=== PATIENT | female | born 1945 | race Caucasian/White ===

== ENCOUNTER 2017-10-08 21:31 | Inpatient (IN) | payer MEDICARE ==
[~2017-10-08] VITALS: Ht 167.6 cm; Wt 51.4 kg
[~2017-10-08 21:31] MED LIST: PROT40TA PO
[2017-10-08 21:39] VITALS: BP 141/64; PULSE 101; RESP 16; TEMP 97.1; O2SAT 92
[2017-10-08] MEDS ORDERED: SODIUM CHLOR 0.9% 1000 ML INJ 1,000 ML IV SCH (21:59)
[2017-10-08] MEDS ORDERED: SODIUM CHLORIDE 0.9% FLUSH 10 ML FLUSH IV FLUSH PRN (22:00)
[2017-10-08] MEDS ORDERED: ONDANSETRON HCL 4 MG/2 ML VIAL IVP ONE (22:00)
[2017-10-08 22:12] VITALS: RESP 18; O2SAT 94
[2017-10-08 22:17] LABS: AUTOMATED NEUTROPHIL # 7.9 TH/MM3 (1.8-7.7); BASOPHIL % 0.2 % (0.0-2.0); EOSINOPHIL # 0.1 TH/MM3 (0-0.4); EOSINOPHIL % 0.9 % (0.0-4.0); HEMATOCRIT 43.8 % (35.0-46.0); HEMO FLAGS DIFF FINAL; LYMPH % 12.1 % (9.0-44.0); LYMPHOCYTE # 1.2 TH/MM3 (1.0-4.8); MEAN CELL VOLUME 90.2 FL (80.0-100.0); MEAN CORPUSCULAR HEMOGLOBIN 29.8 PG (27.0-34.0); MONO % 5.1 % (0.0-8.0); NEUT % 81.7 % (16.0-70.0); PLATELET COUNT 303 TH/MM3 (150-450); RED BLOOD COUNT 4.86 MIL/MM3 (4.00-5.30); RED CELL DISTRIBUTION WIDTH 12.7 % (11.6-17.2); WHITE BLOOD COUNT 9.7 TH/MM3 (4.0-11.0)
[2017-10-08 22:24] LABS: CHLORIDE 101 MEQ/L (98-107); POTASSIUM 3.5 MEQ/L (3.5-5.1); SODIUM (NA) 137 MEQ/L (136-145)
[2017-10-08 22:28] LABS: ANION GAP 6 MEQ/L (5-15); BICARBONATE 29.6 MEQ/L (21.0-32.0); BLOOD UREA NITROGEN 17 MG/DL (7-18)
[2017-10-08 22:30] LABS: ALT (GPT) 169 U/L (10-53); AST (GOT) 160 U/L (15-37)
[2017-10-08 22:31] LABS: GLOMERULAR FILTRATION RATE 98 ML/MIN (>89)
[2017-10-08 22:32] LABS: TOTAL BILIRUBIN ADULT 2.7 MG/DL (0.2-1.0)
[2017-10-08 22:33] LABS: ALKALINE PHOSPHATASE 253 U/L (45-117)
--- NOTE | 2017-10-08 22:47 | EKG ---
Date Performed: 10/08/2017 Time Performed: 22:30:18 PTAGE: 72 years EKG: Sinus rhythm WITH FREQUENT VENTRICULAR PREMATURE COMPLEXES MODERATE INTRAVENTRICULAR CONDUCTION DELAY MODERATE VO LTAGE CRITERIA FOR LVH, CONSIDER NORMAL VARIANT NONSPECIFIC ST & T-WAVE ABNORMALITY ABNORMAL RHYTHM E CG PREVIOUS TRACING : 11/04/2010 15.24 Compared to prior tracing no significant change DOCTOR: Navya Mckeon Interpretating Date/Time 10/08/2017 22:45:29
--- NOTE | 2017-10-08 22:58 | PD ---
HPI . Abdominal pain Chief Complaint: GI Complaint Time Seen by Provider: 21:59 Travel History International Travel<30 days: No Contact w/Intl Traveler<30days: No Traveled to known affect area: No History of Present Illness HPI Patient presents with chief complaint of epigastric pain which started at 10 PM last night. She had associated nausea and vomiting last night. She reports approximately 4-5 episodes of emesis. The nausea persists today. Pain radiates to her back. Pain is rated 7/10. The patient reports she has seen her primary care provider for same and had an ultrasound is scheduled for later this week. Her primary care provider believes that it is probably cholelithiasis. PFSH Past Medical History Cancer: Yes (RIGHT BREAST CANCER) Cardiovascular Problems: No COPD: Yes Diminished Hearing: No Endocrine: No Musculoskeletal: No Respiratory: Yes Tetanus Vaccination: Unknown Influenza Vaccination: No ?: Not Menopausal: Yes Past Surgical History Abdominal Surgery: Yes Mastectomy: Yes (RIGHT) Other Surgery: Yes (LEFT LUNG SURGERY) Social History Alcohol Use: No Tobacco Use: No Substance Use: No Allergies-Medications (Allergen,Severity, Reaction): Coded Allergies: albuterol (Unverified Allergy, Severe, 10/08/17) codeine (Unverified Allergy, Severe, 10/08/17) penicillin G (Unverified Allergy, Severe, 10/08/17) Reported Meds & Prescriptions Reported Meds & Active Scripts Active No Active Prescriptions or Reported Medications Review of Systems Except as stated in HPI: all other systems reviewed are Neg General / Constitutional: No: Fever, Chills Cardiovascular: No: Chest Pain or Discomfort Respiratory: No: Shortness of Breath Gastrointestinal: Positive: Nausea, Vomiting, Abdominal Pain, No: Diarrhea Genitourinary: No: Urgency, Frequency, Dysuria Physical Exam Narrative GENERAL: Awake and alert and in no acute distress. SKIN: warm/dry. Normal color. HEAD: Normocephalic. Atraumatic. EYES: Pupils equal and round. No scleral icterus. No injection or drainage. ENT: No nasal bleeding or discharge. Mucous membranes pink and moist. NECK: Trachea midline. Full range of motion without pain.. CARDIOVASCULAR: Regular rate and rhythm. RESPIRATORY: No accessory muscle use. Clear to auscultation. Breath sounds equal bilaterally. GASTROINTESTINAL: Abdomen soft. Right upper quadrant tenderness. Bowel sounds present. Nondistended. MUSCULOSKELETAL: No obvious deformities. NEUROLOGICAL: Awake and alert. No obvious cranial nerve deficits. Motor grossly within normal limits. Normal speech. PSYCHIATRIC: Appropriate mood and affect; insight and judgment normal. Data Data Last Documented VS Vital Signs Date Time Temp Pulse Resp B/P (MAP) Pulse Ox O2 Delivery O2 Flow Rate FiO2 10/08/17 23:53 100 16 144/68 (93) 94 Room Air 10/08/17 21:39 97.1 Orders Orders Complete Blood Count With Diff (10/08/17 21:59) Comprehensive Metabolic Panel (10/08/17 21:59) Lipase (10/08/17 21:59) Urinalysis - C+S If Indicated (10/08/17 21:59) Ct Abd/Pel W Iv Contrast(Rout) (10/08/17 21:59) Iv Access Insert/Monitor (10/08/17 21:59) Ecg Monitoring (10/08/17 21:59) Oximetry (10/08/17 21:59) Ondansetron Inj (Zofran Inj) (10/08/17 22:00) Sodium Chlor 0.9% 1000 Ml Inj (Ns 1000 M (10/08/17 21:59) Sodium Chloride 0.9% Flush (Ns Flush) (10/08/17 22:00) Electrocardiogram (10/08/17 21:59) Troponin I (10/08/17 21:59) Iohexol 350 Inj (Omnipaque 350 Inj) (10/08/17 23:07) Consult General Surgery (10/08/17 ) (Hub Use Only)Inp Phy Cons/Ref (10/08/17 ) Morphine Inj (Morphine Inj) (10/09/17 00:15) Consult Gastroenterology (10/09/17 ) Admit To Inpatient (10/09/17 ) Vital Signs (Adult) Q4H (10/09/17 00:23) Activity Oob With Assistance (10/09/17 00:23) Registered Mail Clerk / Telemetry .CONTINUOUS (10/09/17 00:23) Diet Npo (10/09/17 Breakfast) Sodium Chloride 0.9% Flush (Ns Flush) (10/09/17 00:30) Sodium Chloride 0.9% Flush (Ns Flush) (10/09/17 09:00) Comprehensive Metabolic Panel (10/10/17 06:00) Complete Blood Count With Diff (10/10/17 06:00) Pt Request For Service (10/09/17 00:23) Case Management Consult (10/09/17 00:23) Naloxone Inj (Narcan Inj) (10/09/17 00:30) Inpatient Certification (10/09/17 ) Labs Laboratory Tests Test 10/08/17 22:00 White Blood Count 9.7 TH/MM3 Red Blood Count 4.86 MIL/MM3 Hemoglobin 14.4 GM/DL Hematocrit 43.8 % Mean Corpuscular Volume 90.2 FL Mean Corpuscular Hemoglobin 29.8 PG Mean Corpuscular Hemoglobin Concent 33.0 % Red Cell Distribution Width 12.7 % Platelet Count 303 TH/MM3 Mean Platelet Volume 7.3 FL Neutrophils (%) (Auto) 81.7 % Lymphocytes (%) (Auto) 12.1 % Monocytes (%) (Auto) 5.1 % Eosinophils (%) (Auto) 0.9 % Basophils (%) (Auto) 0.2 % Neutrophils # (Auto) 7.9 TH/MM3 Lymphocytes # (Auto) 1.2 TH/MM3 Monocytes # (Auto) 0.5 TH/MM3 Eosinophils # (Auto) 0.1 TH/MM3 Basophils # (Auto) 0.0 TH/MM3 CBC Comment DIFF FINAL Differential Comment Blood Urea Nitrogen 17 MG/DL Creatinine 0.60 MG/DL Random Glucose 97 MG/DL Total Protein 7.6 GM/DL Albumin 3.6 GM/DL Calcium Level 9.1 MG/DL Alkaline Phosphatase 253 U/L Aspartate Amino Transf (AST/SGOT) 160 U/L Alanine Aminotransferase (ALT/SGPT) 169 U/L Total Bilirubin 2.7 MG/DL Sodium Level 137 MEQ/L Potassium Level 3.5 MEQ/L Chloride Level 101 MEQ/L Carbon Dioxide Level 29.6 MEQ/L Anion Gap 6 MEQ/L Estimat Glomerular Filtration Rate 98 ML/MIN Troponin I LESS THAN 0.02 NG/ML Lipase GREATER THAN 46092 U/L MDM Medical Decision Making Medical Screen Exam Complete: Yes Emergency Medical Condition: Yes Interpretation(s) EKG shows an underlying sinus rhythm with PVCs. No acute ischemic change. Differential Diagnosis Differential diagnosis of abdominal pain includes but is not limited to gastritis, pancreatitis, hepatitis, gastroenteritis, gallbladder disease, constipation, urinary retention, UTI, peptic ulcer disease, diverticulitis or appendicitis Narrative Course This patient presents with episodic right upper quadrant abdominal pain radiating through to her back and associated with nausea and vomiting. She had an episode this started about 24 hours ago and has persisted. She subsequently presents to us for treatment. I am treating her with a liter of fluids and IV morphine and Zofran. Labs and CT of her abdomen and pelvis are pending. CBC & BMP Diagram 10/08/17 22:00 Total Protein 7.6, Albumin 3.6, Calcium Level 9.1, Alkaline Phosphatase 253 H, Aspartate Amino Transf (AST/SGOT) 160 H, Alanine Aminotransferase (ALT/SGPT) 169 H, Total Bilirubin 2.7 H lipase > 30K trop < 0.02 Last Impressions Abdomen/Pelvis CT 10/08/172158 Signed Impressions: Service Date/Time: Sunday, October 08, 2017 22:53 - CONCLUSION: 1. Markedly distended, stone-filled gallbladder. The wall of the gallbladder is not thickened. No pericholecystic fluid is noted. 2. Extrahepatic and central intrahepatic biliary ductal dilatation is noted. The distal common bile duct measures 11 mm in caliber. There is diffuse dilatation of the main pancreatic duct. Correlation with alkaline phosphatase and bilirubin levels is suggested to confirm distal common bile duct obstruction. No definite pancreatic mass is noted. 3. Multiple calcified nonobstructing bilateral renal calculi which are too numerous to count. 4. Tiny sub-centimeter low-density lesions within the kidneys which may represent small cysts. 5. Uncomplicated colonic diverticulosis is noted. No acute diverticulitis is noted. 6. Degenerative changes and scoliosis of the thoracolumbar spine are noted. 7. Right basilar atelectasis is noted. Rojas Valdez MD She does not meet SIRS criteria. Sepsis Criteria SIRS Criteria (2 or more): Heart rate over 90 Sepsis Criteria (SIRS+source): Infect source susp/known Physician Communication Physician Communication Dr. Leung states that nothing else needs to be done for this patient during the night other than admission, etc. Dr. Reyes will admit. She has asked for a GI consult which has been placed. ERCPs can be done here at [facility]. Diagnosis Primary Impression: Abdominal pain Qualified Codes: R10.11 - Right upper quadrant pain Additional Impression: Gallstone pancreatitis Admitting Information Admitting Physician Requests: Admit Scripts No Active Prescriptions or Reported Meds Condition: Kourtney Veronica MD Oct 08, 2017 22:58
[2017-10-08] MEDS ORDERED: IOHEXOL 350 MG/ML 10 ML VIAL (for RAD DIAG) IVCONTRAST ONE (23:07)
--- NOTE | 2017-10-08 23:25 | RADRPT ---
EXAM DATE/TIME: 10/08/2017 22:53 [facility] COMPARISON: No previous studies available for comparison. INDICATIONS : Right abdominal pain. Nausea. Vomiting. IV CONTRAST: 100 cc Omnipaque 350 (iohexol) IV ORAL CONTRAST: No oral contrast ingested. RADIATION DOSE: 4.83 CTDIvol (mGy) MEDICAL HISTORY : Carcinoma, breast. Emphysema. SURGICAL HISTORY : Mastectomy, right. Left lung. ENCOUNTER: Initial ACUITY: 4 - 6 days PAIN SCALE: 8/10 LOCATION: Right upper quadrant TECHNIQUE: Volumetric scanning of the abdomen and pelvis was performed. Using automated exposure control and ad justment of the mA and/or kV according to patient size, radiation dose was kept as low as reasonably achievable to obtain optimal diagnostic quality images. DICOM format image data is available electro nically for review and comparison. FINDINGS: There is a markedly distended, stone-filled gallbladder. The wall of the gallbladder is not thickened . No pericholecystic fluid is noted. Extrahepatic and central intrahepatic biliary ductal dilatation is noted. The distal common bile duct measures 11 mm in caliber. There is diffuse dilatation of the m ain pancreatic duct. Correlation with alkaline phosphatase and bilirubin levels is suggested to confi rm distal common bile duct obstruction. No definite pancreatic mass is noted. The spleen is unremarka ble. The adrenal glands are normal bilaterally. There are multiple calcified nonobstructing bilateral renal calculi which are too numerous to count. No acute obstructive uropathy is noted. There are tin y sub-centimeter low-density lesions within the kidneys which may represent small cysts. Uncomplicate d colonic diverticulosis is noted. No acute diverticulitis is noted. The urinary bladder is unremarka ble. No bowel obstruction is noted. Degenerative changes and scoliosis of the thoracolumbar spine are noted. Right basilar atelectasis is noted. CONCLUSION: 1. Markedly distended, stone-filled gallbladder. The wall of the gallbladder is not thickened. No per icholecystic fluid is noted. 2. Extrahepatic and central intrahepatic biliary ductal dilatation is noted. The distal common bile d uct measures 11 mm in caliber. There is diffuse dilatation of the main pancreatic duct. Correlation w ith alkaline phosphatase and bilirubin levels is suggested to confirm distal common bile duct obstruc tion. No definite pancreatic mass is noted. 3. Multiple calcified nonobstructing bilateral renal calculi which are too numerous to count. 4. Tiny sub-centimeter low-density lesions within the kidneys which may represent small cysts. 5. Uncomplicated colonic diverticulosis is noted. No acute diverticulitis is noted. 6. Degenerative changes and scoliosis of the thoracolumbar spine are noted. 7. Right basilar atelectasis is noted. Rojas Valdez MD on October 08, 2017 at 23:17 Board Certified Radiologist. This report was verified electronically.
[2017-10-08 23:53] VITALS: BP 144/68; PULSE 100; RESP 16; O2SAT 94
[2017-10-09] VITALS (12 sets, daily range): BP systolic 113–149; BP diastolic 52–87; PULSE 63–108; RESP 14–20; TEMP 97.6–100.1; O2SAT 87–99
[2017-10-09] MEDS ORDERED: MORPHINE SULFATE 4 MG/ML INJ IV ONE (00:15)
[2017-10-09] MEDS ORDERED: NALOXONE HCL 0.4 MG/ML AMP IV PUSH PRN (00:30)
[2017-10-09] MEDS ORDERED: KETOROLAC TROMETHAMINE 30 MG/ML (IVP) VIAL IV PUSH PRN (00:30)
[2017-10-09] MEDS ORDERED: RESP: IPRATROPIUM 0.5 MG/2.5 ML NEB NEB PRN ×2 (00:30→10:30)
[2017-10-09] MEDS ORDERED: SODIUM CHLORIDE 0.9% FLUSH 10 ML FLUSH IV FLUSH PRN (00:30)
[2017-10-09] MEDS: RESP: IPRATROPIUM 0.5 MG/2.5 ML NEB NEB SCH ×2 (03:20→10:11)
[2017-10-09] MEDS ORDERED: MORPHINE SULFATE 4 MG/ML INJ IV PUSH PRN (03:30)
[2017-10-09] MEDS: POTASSIUM CHLORIDE INJ 10 MEQ in SODIUM CHLOR 0.9% 1000 ML INJ 1,000 ML IV SCH ×2 (05:09→14:44)
[2017-10-09 06:34] LABS: BLOOD, URINE SMALL (NEG); GLUCOSE,URINE NEG (NEG); KETONE, URINE 40 mg/dL (NEG); NITRITE,URINE NEG (NEG); PH, URINE 5.5 (5.0-8.5)
[2017-10-09 06:39] LABS: METHOD OF COLLECTION CLEAN CATCH; URINE COLOR AMBER (YELLW/STRAW)
[2017-10-09 06:40] LABS: COMMENT (UR) CULT NOT INDICATED; CULTURE IF INDICATED CULT NOT INDICATED; SQUAMOUS EPITHELIAL CELL URINE 0-5 /hpf (0-5)
[2017-10-09 07:51] LABS: INDIRECT BILIRUBIN 1.2 MG/DL (0.0-0.8); TOTAL BILIRUBIN ADULT 3.4 MG/DL (0.2-1.0)
[2017-10-09] MEDS: SODIUM CHLORIDE 0.9% FLUSH 10 ML FLUSH IV FLUSH SCH ×2 (08:49→21:29)
--- NOTE | 2017-10-09 10:57 | HHI.HP ---
[facility] Gabriella Goodson MD Admission Diagnosis gallstone pancreatitis Diagnoses: (1) Abdominal pain Diagnosis: Principal (2) Gallstone pancreatitis Diagnosis: Principal Chief Complaint: Abdominal pain Travel History International Travel<30 Days: No Contact w/Intl Traveler <30 Da: No Traveled to Known Affected Are: No History of Present Illness Written by Rafat James, acting as scribe for Dr. Garvin on 10/09/17 at 10 :38. 72-year-old female with known history of emphysema, chronic obstructive pulmonary disease, history of right breast cancer, likely chronic respiratory failure on home oxygen who presented for intermittent abdominal pain. Patient states that for the last month she has been experiencing intermittent abdominal pain which is located in the epigastrium and radiates to the right side of her back. They usually last for 4-5 hours and then she has an episode of nausea vomiting and the pain goes away. Patient indicates that she had the pain came back Saturday night at 10 PM this time it remained in her epigastrium and RUQ. She states that she had multiple episodes of nausea and vomiting throughout the night. She did feel better Saturday so she tried to eat. He states that the pain came back 7/10 on a pain scale. She did not have any nausea vomiting throughout the day. Because the pain did not go away as it usually does she came to the emergency department for evaluation. Patient is undergoing outpatient workup by her motorized squad commanding officer Dr. Celis, whom she saw last . Patient was scheduled to have ultrasound, CT the abdomen, and laboratory studies performed. Patient has been able to laboratory studies performed however unable to get any imaging. Patient had workup done and CT findings of acute gallstone pancreatitis with elevated liver enzymes, pancreatic enzymes. Patient was given morphine in the emergency department the patient has not had any recurrence of pain since then. She is not experiencing any recurrent nausea or vomiting. ER documentation indicates that they did contact general surgery for evaluation. Patient was admitted with GI consultation. The patient does report that she was prescribed oxygen was supposed to be on 2 L but she has not worn this for "years" and she herself discontinued the oxygen at her own discretion. Nursing on the floor reports that the patient did desaturate down to the 80s on room air and she responded well to 2 L subsequently with sats in the 90s. Review of Systems Gastrointestinal: COMPLAINS OF: Abdominal pain Except as stated in HPI: all other systems reviewed are Neg Past Family Social History Past Medical History Chronic obstructive pulmonary disease Emphysema History of breast cancer History of chronic respiratory failure on home oxygen Past Surgical History Left upper lobectomy Right inguinal hernia repair Right mastectomy Reported Medications Reported Meds & Active Scripts Active No Active Prescriptions or Reported Medications Allergies: Coded Allergies: albuterol (Unverified Allergy, Severe, 10/08/17) codeine (Unverified Allergy, Severe, 10/08/17) penicillin G (Unverified Allergy, Severe, 10/08/17) Family History Reviewed and unremarkable for any heart disease, lung disease, diabetes, cancer , seizures, stroke Social History Patient quit smoking 20 years ago, prior to that she smoked one pack of cigarettes a day since she was 16 years old. Doesn't drink alcohol rarely. Denies any illicit drugs Physical Exam Vital Signs Vital Signs Date Time Temp Pulse Resp B/P (MAP) Pulse Ox O2 Delivery O2 Flow Rate FiO2 10/09/17 10:15 94 Nasal Cannula 2.00 10/09/17 10:13 87 21 10/09/17 08:00 98.5 83 14 114/52 (72) 92 10/09/17 06:31 99.5 63 20 149/87 (107) 99 10/09/17 06:13 100.1 104 20 126/57 (80) 92 10/09/17 03:20 96 Nasal Cannula 2.00 10/09/17 02:00 96 16 95 Nasal Cannula 2.00 10/09/17 02:00 98.8 108 20 115/59 (77) 94 10/09/17 01:35 96 16 140/68 (92) 94 Room Air 10/08/17 23:53 100 16 144/68 (93) 94 Room Air 10/08/17 22:12 18 94 Room Air 10/08/17 21:50 18 10/08/17 21:39 97.1 101 16 141/64 (89) 92 Physical Exam GENERAL: Well-developed, thin elderly female, in no acute distress. alert and orientated HEENT: Head is normocephalic without any lesions or masses noted. Facial features are symmetric. Eyes: Pupils equal round reactive to light. Extraocular muscles are intact. Conjunctivae were clear. Oropharyngeal: Pharynx without any erythema edema. Tongue is midline without deviation. Buccal mucosa shows white patches on the soft palate CARDIAC: Regular rhythm, regular rate. S1/S2 are heard. No murmurs gallops or rubs. LUNGS: Clear to auscultation bilaterally. No wheeze, rhonchi or rales. No use of accessory muscles on inspiration or expiration. ABDOMEN: Soft, direct tenderness noted in the right upper quadrant. Nondistended. Bowel sounds heard in all 4 quadrants. No organomegaly or masses. Negative rebound, negative guarding EXTREMITIES: No edema, pulses are equal bilaterally. No cyanosis or clubbing NEUROLOGY: No facial droop, no slurred speech, no obvious cranial nerve deficits. MSK: Muscle strength 5/5 in proximal upper and lower extremities bilaterally Psychiatry: Mood and affect appear appropriate. Laboratory Laboratory Tests Test 10/08/17 22:00 10/09/17 06:25 10/09/17 07:20 White Blood Count 9.7 Red Blood Count 4.86 Hemoglobin 14.4 Hematocrit 43.8 Mean Corpuscular Volume 90.2 Mean Corpuscular Hemoglobin 29.8 Mean Corpuscular Hemoglobin Concent 33.0 Red Cell Distribution Width 12.7 Platelet Count 303 Mean Platelet Volume 7.3 Neutrophils (%) (Auto) 81.7 Lymphocytes (%) (Auto) 12.1 Monocytes (%) (Auto) 5.1 Eosinophils (%) (Auto) 0.9 Basophils (%) (Auto) 0.2 Neutrophils # (Auto) 7.9 Lymphocytes # (Auto) 1.2 Monocytes # (Auto) 0.5 Eosinophils # (Auto) 0.1 Basophils # (Auto) 0.0 CBC Comment DIFF FINAL Differential Comment Blood Urea Nitrogen 17 Creatinine 0.60 Random Glucose 97 Total Protein 7.6 6.5 Albumin 3.6 3.0 Calcium Level 9.1 Alkaline Phosphatase 253 274 Aspartate Amino Transf (AST/SGOT) 160 199 Alanine Aminotransferase (ALT/SGPT) 169 182 Total Bilirubin 2.7 3.4 Sodium Level 137 Potassium Level 3.5 Chloride Level 101 Carbon Dioxide Level 29.6 Anion Gap 6 Estimat Glomerular Filtration Rate 98 Troponin I LESS THAN 0.02 Lipase GREATER THAN 18450 9604 Urine Collection Type CLEAN CATCH Urine Color [place]ORE Urine Turbidity CLEAR Urine pH 5.5 Urine Specific [place] GREATER THAN 1.035 Urine Protein NEG Urine Glucose (UA) NEG Urine Ketones 40 Urine Occult Blood SMALL Urine Nitrite NEG Urine Bilirubin SMALL Urine Leukocyte Esterase NEG Urine RBC 4-9 Urine Squamous Epithelial Cells 0-5 Urine Amorphous Sediment FEW Microscopic Urinalysis Comment CULT NOT INDICATED Urine Collection Time 0628 Direct Bilirubin 2.2 Indirect Bilirubin 1.2 Result Diagram: 10/08/17219910/08/172199 Imaging Last Impressions Abdomen/Pelvis CT 10/08/172158 Signed Impressions: Service Date/Time: Sunday, October 08, 2017 22:53 - CONCLUSION: 1. Markedly distended, stone-filled gallbladder. The wall of the gallbladder is not thickened. No pericholecystic fluid is noted. 2. Extrahepatic and central intrahepatic biliary ductal dilatation is noted. The distal common bile duct measures 11 mm in caliber. There is diffuse dilatation of the main pancreatic duct. Correlation with alkaline phosphatase and bilirubin levels is suggested to confirm distal common bile duct obstruction. No definite pancreatic mass is noted. 3. Multiple calcified nonobstructing bilateral renal calculi which are too numerous to count. 4. Tiny sub-centimeter low-density lesions within the kidneys which may represent small cysts. 5. Uncomplicated colonic diverticulosis is noted. No acute diverticulitis is noted. 6. Degenerative changes and scoliosis of the thoracolumbar spine are noted. 7. Right basilar atelectasis is noted. Rojas Valdez MD Caprini VTE Risk Assessment Caprini VTE Risk Assessment: Mod/High Risk (score >= 2) Caprini Risk Assessment Model Point Value = 1 Point Value = 2 Point Value = 3 Point Value = 5 Age 41-60 Minor surgery BMI > 25 kg/m2 Swollen legs Varicose veins or History of unexplained or recurrent spontaneous Oral contraceptives or hormone replacement Sepsis (< 1 month) Serious lung disease, including pneumonia (< 1 month) Abnormal pulmonary function Acute myocardial infarction Congestive heart failure (< 1 month) History of inflammatory bowel disease Medical patient at bed rest Age 61-74 Arthroscopic surgery Major open surgery (> 45 min) Laparoscopic surgery (> 45 min) Malignancy Confined to bed (> 72 hours) Immobilizing plaster cast Central venous access Age >= 75 History of VTE Family history of VTE Factor V Leiden Prothrombin [id number] Lupus anticoagulant Anticardiolipin antibodies Elevated serum homocysteine Heparin-induced thrombocytopenia Other congenital or acquired thrombophilia Stroke (< 1 month) Elective arthroplasty Hip, pelvis, or leg fracture Acute spinal cord injury (< 1 month) Prophylaxis Regimen Total Risk Factor Score Risk Level Prophylaxis Regimen 0-1 Low Early ambulation 2 Moderate Order ONE of the following: *Sequential Compression Device (SCD) *Heparin 5000 units SQ BID 3-4 Higher Order ONE of the following medications: *Heparin 5000 units SQ TID *Enoxaparin/Lovenox 40 mg SQ daily (WT < 150 kg, CrCl > 30 mL/min) *Enoxaparin/Lovenox 30 mg SQ daily (WT < 150 kg, CrCl > 10-29 mL/min) *Enoxaparin/Lovenox 30 mg SQ BID (WT < 150 kg, CrCl > 30 mL/min) AND/OR *Sequential Compression Device (SCD) 5 or more Highest Order ONE of the following medications: *Heparin 5000 units SQ TID (Preferred with Epidurals) *Enoxaparin/Lovenox 40 mg SQ daily (WT < 150 kg, CrCl > 30 mL/min) *Enoxaparin/Lovenox 30 mg SQ daily (WT < 150 kg, CrCl > 10-29 mL/min) *Enoxaparin/Lovenox 30 mg SQ BID (WT < 150 kg, CrCl > 30 mL/min) AND *Sequential Compression Device (SCD) Assessment and Plan Assessment and Plan 72-year-old female who presented to hospital because of one month history of intermittent colicky abdominal pain Acute gallstone pancreatitis -CT scan shows markedly distended, stone filled gallbladder. Gallbladder wall was not thickened, no pericholecystic fluid. Extrahepatic and central intrahepatic biliary ductal dilatation. Distal common bile measures 11 mm in caliber there is diffuse dilatation of the main hepatic duct -Maintain nothing by mouth status -Continue IV fluids -Continue pain control -Continue to trend liver enzymes which appears to be worsening, -Continue to trend pancreatic enzyme which is improving -Obtain MRCP -Registered Vascular Technologist (Rvt) was consulted, case was discussed with them, who indicated patient needs to be transferred to [facility] for continued care, because [facility] Oral thrush -Mycelex 5 times daily Chronic obstructive pulmonary disease/emphysema -Oxygen was removed and patient became hypoxic. We'll continue O2 supplementation maintain O2 sats greater than 92% -Ipratropium bromide every 6 hours as needed DVT prevention -Sequential compression devices This note was transcribed by scribalen James. IDinh, personally performed the history, physical exam, and medical decision making; and confirmed the accuracy of the information in the transcribed note. Authenticated by Dinh Garvin on 10/10/17 at 8:30 am. Orders entered by Eulalio James were at my discretion. Physician Certification 2 Midnight Certification Type: Admission for Inpatient Services Order for Inpatient Services The services are ordered in accordance with Medicare regulations or non- Medicare payer requirements, as applicable. In the case of services not specified as inpatient-only, they are appropriately provided as inpatient services in accordance with the 2-midnight benchmark. Estimated LOS (days): 3 days is the estimated time the patient will need to remain in the hospital, assuming treatment plan goals are met and no additional complications. Post-Hospital Plan: Not yet determined Problem Qualifiers (1) Abdominal pain: Qualified Codes: R10.11 - Right upper quadrant pain Rafat James Oct 09, 2017 10:57 Dinh Garvin MD Oct 10, 2017 08:19
[2017-10-09] MEDS: CLOTRIMAZOLE 10 MG TROCHE BUCCAL SCH ×3 (14:00→21:26)
[2017-10-09] MEDS ORDERED: LEVOFLOXACIN 750 MG PREMIX INJ 150 ML IV SCH (16:00)
--- NOTE | 2017-10-09 16:04 | PD.CONS ---
HPI Service General Surgery Consult Requested By Dr. Guerrier Reason for Consult choledocholithisis, gallstone pancreatitis Primary Care Physician Gabriella Goodson MD History of Present Illness 72 yo F with intermittent abdominal pain x 1 month which worsened Saturday night and again last night. Pain is epigastric and associated with emesis and radiation to right shoulder blade. She was noted to have elevated LFTs and lipase >30,000. CT a/p showed gallstones and dilated common bile and pancreatic ducts. MRCP is ordered but the patient is resisting having this done secondary to claustrophobia. GI has been consulted and per the patient is considering ERCP next couple of days. She has a h/o COPD and has O2 at home but has not been using it. Has not seen a chemical cell changer in a long time. Review of Systems Constitutional: DENIES: Fever, Chills Eyes: DENIES: Eye inflammation, Eye pain Respiratory: DENIES: Cough, Snoring Cardiovascular: DENIES: Chest pain, Palpitations Gastrointestinal: COMPLAINS OF: Abdominal pain, Nausea, Vomiting Integumentary: DENIES: Pruritus, Rash Neurologic: DENIES: Seizures, Speech Problems Past Family Social History Past Medical History COPD History of breast cancer History of chronic respiratory failure on home oxygen Past Surgical History H/o left upper lobectomy right inguinal hernia repair right mastectomy Reported Medications Reported Meds & Active Scripts Active No Active Prescriptions or Reported Medications Allergies: Coded Allergies: albuterol (Unverified Allergy, Severe, 10/08/17) codeine (Unverified Allergy, Severe, 10/08/17) penicillin G (Unverified Allergy, Severe, 10/08/17) Active Ordered Medications Current Medications Medications (Trade) Dose Ordered Sig/Morro Route Start Time Stop Time Status Last Admin (NS Flush) 2 ml UNSCH PRN IV FLUSH 10/09/17 00:30 (NS Flush) 2 ml BID IV FLUSH 10/09/17 09:00 (Narcan Inj) 0.4 mg UNSCH PRN IV PUSH 10/09/17 00:30 (Atrovent Neb) 0.5 mg Q6HR NEB NEB 10/09/17 04:00 10/09/17 10:11 Potassium Chloride 10 meq/ Sodium Chloride 1,005 ml @ 75 mls/hr [id number] IV 10/09/17 04:00 10/09/17 14:44 (Morphine Inj) 2 mg Q3H PRN IV PUSH 10/09/17 03:30 (Zofran Inj) 4 mg Q6HR PRN IV PUSH 10/09/17 09:00 (Atrovent Neb) 0.5 mg Q6HR NEB PRN NEB 10/09/17 10:30 (Mycelex) 10 mg 5 TIMES A DAY BUCCAL 10/09/17 14:00 Family History NC Social History No current tobacco use. Her is here with her. Physical Exam Vital Signs Vital Signs Date Time Temp Pulse Resp B/P (MAP) Pulse Ox O2 Delivery O2 Flow Rate FiO2 10/09/17 12:00 97.6 79 20 113/53 (73) 95 10/09/17 10:15 94 Nasal Cannula 2.00 10/09/17 10:13 87 21 10/09/17 08:00 98.5 83 14 114/52 (72) 92 10/09/17 06:31 99.5 63 20 149/87 (107) 99 10/09/17 06:13 100.1 104 20 126/57 (80) 92 10/09/17 03:20 96 Nasal Cannula 2.00 10/09/17 02:00 96 16 95 Nasal Cannula 2.00 10/09/17 02:00 98.8 108 20 115/59 (77) 94 10/09/17 01:35 96 16 140/68 (92) 94 Room Air 10/08/17 23:53 100 16 144/68 (93) 94 Room Air 10/08/17 22:12 18 94 Room Air 10/08/17 21:50 18 10/08/17 21:39 97.1 101 16 141/64 (89) 92 Physical Exam GENERAL: Awake and alert. No acute distress. Cooperative. Somewhat flat affect. Thin and frail. HEAD: Normocephalic. Atraumatic. EYES: Pupils equal round and reactive to light bilaterally. No scleral icterus. ENT: Moist oral mucosa. NECK: Trachea midline. CHEST: Lungs clear to auscultation bilaterally with no wheezing or rhonchi. No respiratory distress. CARDIOVASCULAR: Regular rate and rhythm. ABDOMEN: epigastric moderate ttp EXTREMITIES: No cyanosis or edema. SKIN: Warm, dry, nonjaundiced. Laboratory Laboratory Tests Test 10/08/17 22:00 10/09/17 06:25 10/09/17 07:20 White Blood Count 9.7 Red Blood Count 4.86 Hemoglobin 14.4 Hematocrit 43.8 Mean Corpuscular Volume 90.2 Mean Corpuscular Hemoglobin 29.8 Mean Corpuscular Hemoglobin Concent 33.0 Red Cell Distribution Width 12.7 Platelet Count 303 Mean Platelet Volume 7.3 Neutrophils (%) (Auto) 81.7 Lymphocytes (%) (Auto) 12.1 Monocytes (%) (Auto) 5.1 Eosinophils (%) (Auto) 0.9 Basophils (%) (Auto) 0.2 Neutrophils # (Auto) 7.9 Lymphocytes # (Auto) 1.2 Monocytes # (Auto) 0.5 Eosinophils # (Auto) 0.1 Basophils # (Auto) 0.0 CBC Comment DIFF FINAL Differential Comment Blood Urea Nitrogen 17 Creatinine 0.60 Random Glucose 97 Total Protein 7.6 6.5 Albumin 3.6 3.0 Calcium Level 9.1 Alkaline Phosphatase 253 274 Aspartate Amino Transf (AST/SGOT) 160 199 Alanine Aminotransferase (ALT/SGPT) 169 182 Total Bilirubin 2.7 3.4 Sodium Level 137 Potassium Level 3.5 Chloride Level 101 Carbon Dioxide Level 29.6 Anion Gap 6 Estimat Glomerular Filtration Rate 98 Troponin I LESS THAN 0.02 Lipase GREATER THAN [id number] Urine Collection Type CLEAN CATCH Urine Color SALVATORE Urine Turbidity CLEAR Urine pH 5.5 Urine Specific [place] GREATER THAN 1.035 Urine Protein NEG Urine Glucose (UA) NEG Urine Ketones 40 Urine Occult Blood SMALL Urine Nitrite NEG Urine Bilirubin SMALL Urine Leukocyte Esterase NEG Urine RBC 4-9 Urine Squamous Epithelial Cells 0-5 Urine Amorphous Sediment FEW Microscopic Urinalysis Comment CULT NOT INDICATED Urine Collection Time 0628 Direct Bilirubin 2.2 Indirect Bilirubin 1.2 Result Diagram: 10/08/17219910/08/172199 Imaging Last Impressions Abdomen/Pelvis CT 10/08/172158 Signed Impressions: Service Date/Time: Sunday, October 08, 2017 22:53 - CONCLUSION: 1. Markedly distended, stone-filled gallbladder. The wall of the gallbladder is not thickened. No pericholecystic fluid is noted. 2. Extrahepatic and central intrahepatic biliary ductal dilatation is noted. The distal common bile duct measures 11 mm in caliber. There is diffuse dilatation of the main pancreatic duct. Correlation with alkaline phosphatase and bilirubin levels is suggested to confirm distal common bile duct obstruction. No definite pancreatic mass is noted. 3. Multiple calcified nonobstructing bilateral renal calculi which are too numerous to count. 4. Tiny sub-centimeter low-density lesions within the kidneys which may represent small cysts. 5. Uncomplicated colonic diverticulosis is noted. No acute diverticulitis is noted. 6. Degenerative changes and scoliosis of the thoracolumbar spine are noted. 7. Right basilar atelectasis is noted. Rojas Valdez MD Assessment and Plan Assessment and Plan 72-year-old female with choledocholithiasis and gallstone pancreatitis. MRCP is ordered but she is resisting this. She may require ERCP in the next couple of days and this is per gastroenterology. I did go ahead and start her on antibiotics as her CBC shows a left shift. I will be available for cholecystectomy when her clinical condition has improved either as an inpatient or an outpatient. Discussed with current situation with her in detail using a diagram. Adair Leung MD Oct 09, 2017 16:04
[2017-10-09] MEDS: CIPROFLOXACIN 400 MG PREMIX 200 ML IV SCH (17:01)
[2017-10-09] MEDS: metroNIDAZOLE 500 MG INJ 100 ML IV SCH (18:07)
[2017-10-09 23:07] LABS: APTT (PATIENT) 27.8 SEC (24.3-30.1); INTERNATIONAL NORMALIZED RATIO 1.3 RATIO; PROTHROMBIN TIME - PATIENT 12.7 SEC (9.8-11.6)
[2017-10-10] VITALS (9 sets, daily range): BP systolic 113–137; BP diastolic 53–60; PULSE 72–105; RESP 16–20; TEMP 97–98.5; O2SAT 93–97
[2017-10-10] MEDS: metroNIDAZOLE 500 MG INJ 100 ML IV SCH ×3 (01:51→18:41)
[2017-10-10] MEDS: ONDANSETRON HCL 4 MG/2 ML VIAL IV PUSH PRN ×2 (04:08→20:13)
[2017-10-10] MEDS: CIPROFLOXACIN 400 MG PREMIX 200 ML IV SCH ×2 (04:11→16:14)
[2017-10-10] MEDS: RESP: IPRATROPIUM 0.5 MG/2.5 ML NEB NEB SCH ×4 (04:59→22:00)
[2017-10-10] MEDS: CLOTRIMAZOLE 10 MG TROCHE BUCCAL SCH ×5 (05:02→22:00)
[2017-10-10] MEDS: POTASSIUM CHLORIDE INJ 10 MEQ in SODIUM CHLOR 0.9% 1000 ML INJ 1,000 ML IV SCH (07:21)
--- NOTE | 2017-10-10 09:05 | HHI.GIFU ---
GI Follow-up Note Consult Follow-up Subjective: Patient laying in bed comfortably. No pain today. Objective: PHYSICAL EXAMINATION: Vitals signs stable No fever HEENT: no jaundice. Throat is clear. NECK: Neck is supple CHEST: Chest is clear to auscultation and percussion. CARDIAC: Regular rate and rhythm with no murmur gallop or rubs. ABDOMEN: Soft, nondistended, minimal tender in upper abd; no hepatosplenomegaly ; bowel sounds are present in all four quadrants. EXTREMITIES: No edema.. VERIFICATION MANAGER: alert and oriented times three. Available Data (labs, X- Rays, Procedues) : am labs pending ASSESSMENT/PLAN: 1. Gallstone pancreatitis 2. Dilated CBC/PD 3. abnormal LFT's 4. abd pain/n/v-resolved PLAN: 1. Cont antibiotics 2. awaiting labs 3. ERCP pending labs. all risks reviewed (see formal consult for details- [id number]) It was a pleasure seeing Jessica Ortega. Thank you for this consult. Entered by: Prieto Angeles MD Oct 10, 2017 09:05
[2017-10-10] MEDS: SODIUM CHLORIDE 0.9% FLUSH 10 ML FLUSH IV FLUSH SCH ×2 (10:15→20:18)
--- NOTE | 2017-10-10 12:00 | MB ---
cc: ESA JAMES,ANABELL DSOUZA M.D. DATE OF CONSULTATION 10/09/2017 DATE OF 1945 REASON FOR CONSULTATION I was asked to see the patient by Esa James for evaluation of gallstone pancreatitis. HISTORY OF THE PRESENT ILLNESS The patient is a pleasant 72-year-old white female who was seen by Dr. Danielle Celis in our office last week. He suspects that he has some type of biliary process and ordered blood work and imaging studies but she never accomplished these because her got more serious and she ended up in the emergency room and I am asked to see her. Her pain is located in the upper abdomen. It is very colicky in nature, associated with bilious vomiting. It did radiate to her right shoulder and sometimes directly to her back. Her pain worsened and she came to the emergency room and CT scan showed some abnormalities including a dilated pancreatic duct, bile duct and multiple gallstones. There is evidence of pancreatitis also with a lipase greater than 30,000. We have been asked to evaluate this. At this time she says the pain is much better. There has been no more nausea, vomiting. No melena, hematochezia or diarrhea or constipation. No acholic stools. She denies any fever or chills. PAST MEDICAL HISTORY 1. Breast cancer. 1. Recent diagnosis of gallstones as mentioned above. 2. Chronic obstructive pulmonary disease. She is usually on oxygen. Other past medical history includes: abdominal pain as mentioned above. She has had for some time. PAST SURGICAL HISTORY Includes: 1. Right inguinal hernia repair. 2. Right mastectomy for breast cancer. 3. She has left upper lobectomy. She is not quite sure why. ALLERGIES ALBUTEROL, CODEINE, PENICILLIN. FAMILY HISTORY Not significant for any type of colon cancer, colon polyps. SOCIAL HISTORY She quit smoking over 20 years ago. She does not drink any significant amounts of alcohol. She has been smoking since her teenage years. REVIEW OF SYSTEMS No weight loss or fevers. CARDIOPULMONARY: She has a baseline shortness of breath but no wheezing. No chest pain or palpitations. GASTROINTESTINAL: Please see above. She denies any GI bleeding. Otherwise unremarkable 10 point review of systems. MEDICATIONS 1. Atrovent. 2. Zofran. 3. Morphine. 4. Narcan. PHYSICAL EXAMINATION VITAL SIGNS: Blood pressure is 124/56, pulse of 80, respiratory rate 16, temperature is 98.8. GENERAL: She is an elderly white female resting comfortably at this time. Appears in no acute distress right now. She says the pain is improved. HEENT: Her pupils equal, round and reactive to light. No obvious scleral icterus. Oropharynx had dental caries. No tongue deviation or candidal lesions. Hearing was intact. NECK: The neck is supple without lymphadenopathy. LUNGS: Clear to auscultation and percussion. HEART: Regular rhythm. No gross murmurs are heard. ABDOMEN: Soft. Minimal tenderness upper abdomen. No rebound tenderness or organomegaly or masses. No Robertson's sign. Bowel sounds are positive in the upper quadrants. RECTAL: Exam is not done. NEUROLOGIC: Cranial nerves II through XII are grossly intact. She is alert and oriented times three. SKIN: Warm and moist. I did not do a rectal examination or assess her gait. LABORATORY DATA Data base, labs revealed a white blood count of 9700, hemoglobin of 14.4, hematocrit 43.8, MCV of 90.2, platelet count 303,000. Her BUN 17, creatinine 0.6. Yesterday bilirubin 2.7, today it is 3.4. Yesterday SGOT was 160, today it is 199. SGPT yesterday was 169, today it is 182. Alkaline phos of 253, today it was 274. Her lipase was greater than 30,000 yesterday, today it dropped to 9604. IMAGING A CT scan of the abdomen and pelvis was done and this revealed a markedly distended stone filled gallbladder. The gallbladder was not thickened. There is no pericholecystic fluid. The extrahepatic and central intrahepatic bile duct dilatation, the common bile duct is up to 11 mm in size. There is also diffuse dilatation of the main pancreatic duct. There is no definite pancreatic mass. There is some kidney stones noted, kidney cysts, uncomplicated diverticulosis. IMPRESSION 1. Gallstone pancreatitis - we talked about the pathophysiology of gallstones and I mihaela a diagram and she understands a gallbladder stone passed through the ampulla of Vater and more likely caused the pancreatitis. We talked about other etiologies also but she does not currently drink alcohol excessively and has no new medications. Whether there is a cancer is unclear. It was not seen in the studies but her pancreatic duct is dilated. She understands at this time on the CT scan there is no obvious common bile duct stone but suspect she either passed one or a stone is ball-valving. 2. Dilated common bile duct, intrahepatic and dilated pancreatic duct. The latter can be sometimes seen in malignancy but no obvious mass is seen on the CT scan. She may have form of ampullary stenosis also plating a role in this situation. 3. Gallstones. 4. Increased liver function tests probably related to biliary tract process. 5. Abdominal pain, nausea and vomiting - resolved at this time. RECOMMENDATIONS 1. Follow up labs. 2. MRCP was ordered but apparently the patient refused this. The patient understands the MRCP is to look for bile duct stones, malignancies and get a better idea about her anatomy. 3. Therefore, we will proceed with an ERCP with possible sphincterotomy and stent placement. All indications, risks, complications and benefits and alternatives were discussed with her including risk of bleeding, perforation, infection, arrhythmias, small possibility of , pancreatitis as well as ascending cholangitis. She understands the limitations of exam - we could not cannulate or clear a bile duct etc. This procedure will be done by my partner Dr. Celis. As far as timing of the procedure we will probably do this in the next day or so. It all depends on how her pancreatitis is doing. 4. Prothrombin time, PTT. 5. Antibiotics such as Cipro to prevent ascending cholangitis. Further recommendations depending on how she does. MD KELSI Reis/ALEXIS /5:13 PM /11:38 AM [email or web address]
[2017-10-10 12:59] LABS: AUTOMATED NEUTROPHIL # 3.4 TH/MM3 (1.8-7.7); BASOPHIL % 0.2 % (0.0-2.0); EOSINOPHIL # 0.1 TH/MM3 (0-0.4); EOSINOPHIL % 1.4 % (0.0-4.0); HEMATOCRIT 35.3 % (35.0-46.0); HEMO FLAGS DIFF FINAL; LYMPH % 19.6 % (9.0-44.0); LYMPHOCYTE # 0.9 TH/MM3 (1.0-4.8); MEAN CELL VOLUME 94.1 FL (80.0-100.0); MEAN CORPUSCULAR HEMOGLOBIN 30.8 PG (27.0-34.0); MEAN CORPUSCULAR HGB CONC 32.8 % (32.0-36.0); MONO % 8.2 % (0.0-8.0); NEUT % 70.6 % (16.0-70.0); PLATELET COUNT 205 TH/MM3 (150-450); RED BLOOD COUNT 3.75 MIL/MM3 (4.00-5.30); RED CELL DISTRIBUTION WIDTH 13.3 % (11.6-17.2); WHITE BLOOD COUNT 4.7 TH/MM3 (4.0-11.0)
--- NOTE | 2017-10-10 13:24 | HHI.PR ---
Subjective Remarks patient no pain complains "very hungry" no nausea or vomiting Objective Vitals Vital Signs Date Time Temp Pulse Resp B/P (MAP) Pulse Ox O2 Delivery O2 Flow Rate FiO2 10/10/17 08:33 93 Nasal Cannula 2.00 10/10/17 08:00 97.7 74 20 119/57 (77) 93 10/10/17 04:08 98.5 82 16 116/53 (74) 93 10/10/17 04:00 97 10/10/17 00:00 98.2 80 18 126/60 (82) 95 10/10/17 00:00 80 10/09/17 20:00 97.6 82 16 125/62 (83) 92 10/09/17 20:00 97.6 82 16 125/62 (83) 92 10/09/17 20:00 76 10/09/17 16:00 98.8 80 16 124/56 (78) 92 10/09/17 14:00 83 I/O 10/09/17 10/09/17 10/09/17 10/10/17 10/10/17 10/10/17 07:00 15:00 23:00 07:00 15:00 23:00 Intake Total 1100 ml 427 ml 200 ml 732 ml Output Total 300 ml Balance 800 ml 427 ml 200 ml 732 ml Intake Oral 0 ml IV Total 1100 ml 427 ml 200 ml 732 ml Output Urine Total 300 ml # Voids 3 # Bowel Movements 0 Result Diagram: 10/10/17 1230 10/08/17 2200 Imaging Last Impressions Abdomen/Pelvis CT 10/08/172158 Signed Impressions: Service Date/Time: Sunday, October 08, 2017 22:53 - CONCLUSION: 1. Markedly distended, stone-filled gallbladder. The wall of the gallbladder is not thickened. No pericholecystic fluid is noted. 2. Extrahepatic and central intrahepatic biliary ductal dilatation is noted. The distal common bile duct measures 11 mm in caliber. There is diffuse dilatation of the main pancreatic duct. Correlation with alkaline phosphatase and bilirubin levels is suggested to confirm distal common bile duct obstruction. No definite pancreatic mass is noted. 3. Multiple calcified nonobstructing bilateral renal calculi which are too numerous to count. 4. Tiny sub-centimeter low-density lesions within the kidneys which may represent small cysts. 5. Uncomplicated colonic diverticulosis is noted. No acute diverticulitis is noted. 6. Degenerative changes and scoliosis of the thoracolumbar spine are noted. 7. Right basilar atelectasis is noted. Rojas Valdez MD Objective Remarks awake and alert, no acute distress anicteric lungs - no rales or wheezes regular rhythm abdomen soft, nontender, no guarding extremities no edema A/P Problem List: (1) Abdominal pain ICD Code: R10.9 - Unspecified abdominal pain Status: Acute (2) Gallstone pancreatitis ICD Code: K85.10 - Biliary acute pancreatitis without necrosis or infection Status: Acute Assessment and Plan 72-year-old female who presented to hospital because of one month history of intermittent colicky abdominal pain Acute gallstone pancreatitis- lipase trending down, pain improved -CT scan shows markedly distended, stone filled gallbladder. Gallbladder wall was not thickened, no pericholecystic fluid. Extrahepatic and central intrahepatic biliary ductal dilatation. Distal common bile measures 11 mm in caliber there is diffuse dilatation of the main hepatic duct - may have ice chips -Continue IV fluids -Continue pain control - GI ff- plan for ERCP in am - this am labs- pending - on IV flagyl and ciprofloxacin Oral thrush -Mycelex 5 times daily Chronic obstructive pulmonary disease/emphysema- S/P upper lobe lobectomy- at one point was 02 dependent- now per patient not as often -Oxygen was removed and patient became hypoxic. We'll continue O2 supplementation maintain O2 sats greater than 92% -Ipratropium bromide every 6 hours as needed DVT prevention -Sequential compression devices Problem Qualifiers (1) Abdominal pain: Qualified Codes: R10.11 - Right upper quadrant pain Richard Chang MD Oct 10, 2017 13:24
[2017-10-10 13:31] LABS: ALKALINE PHOSPHATASE 204 U/L (45-117); ALT (GPT) 78 U/L (10-53); ANION GAP 7 MEQ/L (5-15); AST (GOT) 50 U/L (15-37); BICARBONATE 17.4 MEQ/L (21.0-32.0); BLOOD UREA NITROGEN 10 MG/DL (7-18); CHLORIDE 122 MEQ/L (98-107); GLOMERULAR FILTRATION RATE 487 ML/MIN (>89); POTASSIUM 5.7 MEQ/L (3.5-5.1); SODIUM (NA) 146 MEQ/L (136-145); TOTAL BILIRUBIN ADULT 0.7 MG/DL (0.2-1.0)
[2017-10-10 13:34] LABS: CALCIUM-PROTEIN CORRECTED 6.8 MG/DL (8.5-10.1)
[2017-10-10] MEDS ORDERED: DEXTROSE 50% IN WATER 50 ML VIAL(D50) IV PUSH ONE ×2 (13:45→20:00)
[2017-10-10] MEDS ORDERED: DEXT 5%-NACL 0.45% 1000 ML INJ 1,000 ML IV SCH (14:00)
[2017-10-10] MEDS ORDERED: DEXTROSE 50% IN WATER 50 ML SYRINGE IV PUSH ONE (16:30)
[2017-10-10] MEDS: SODIUM CHLORIDE 23.4% INJ 154 MEQ in DEXTROSE 10% INJ 1,000 ML IV SCH (20:24)
[2017-10-11] VITALS (14 sets, daily range): BP systolic 84–141; BP diastolic 43–67; PULSE 73–97; RESP 16–20; TEMP 97.6–98.3; O2SAT 93–96
[2017-10-11] MEDS: metroNIDAZOLE 500 MG INJ 100 ML IV SCH ×3 (02:29→18:00)
[2017-10-11] MEDS: RESP: IPRATROPIUM 0.5 MG/2.5 ML NEB NEB SCH ×4 (03:52→21:08)
[2017-10-11] MEDS: CLOTRIMAZOLE 10 MG TROCHE BUCCAL SCH ×5 (05:05→20:20)
[2017-10-11] MEDS: CIPROFLOXACIN 400 MG PREMIX 200 ML IV SCH ×2 (05:05→18:28)
[2017-10-11] MEDS ORDERED: SODIUM CHLORID 0.9% 500 ML IV PRN (05:30)
[2017-10-11] MEDS ORDERED: POVIDONE IODINE 5% (ANTISEPSIS KIT) 4 APPLICATIONS EACH NARE PRN (05:30)
[2017-10-11] MEDS ORDERED: CHLORHEXIDINE GLUCONATE 2 % 1 PACK (2 CLOTHS) TOPICAL PRN (05:30)
[2017-10-11] MEDS ORDERED: LACTATED RINGER'S 1000 ML IV PRN (05:30)
[2017-10-11] MEDS ORDERED: INSULIN HUMAN REGULAR 1,000 UNITS/10 ML VIAL SQ PRN (05:30)
[2017-10-11] MEDS ORDERED: METOPROLOL TARTRATE 25 MG TAB PO PRN (05:30)
[2017-10-11] MEDS: SODIUM CHLORIDE 0.9% FLUSH 10 ML FLUSH IV FLUSH SCH ×2 (07:43→20:20)
[2017-10-11] MEDS: SODIUM CHLORIDE 23.4% INJ 154 MEQ in DEXTROSE 10% INJ 1,000 ML IV SCH (08:35)
--- NOTE | 2017-10-11 09:49 | HHI.GIFU ---
GI Follow-up Note Consult Follow-up Subjective: Patient laying in bed comfortably-no abd pain Objective: PHYSICAL EXAMINATION: Vitals signs stable No fever CHEST: Chest is clear to auscultation and percussion. CARDIAC: Regular rate and rhythm with no murmur gallop or rubs. ABDOMEN: Soft, nondistended, nontender; no hepatosplenomegaly; bowel sounds are present in all four quadrants. EXTREMITIES: No edema. SKIN: no jaundice. 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 Available Data (labs, X- Rays, Procedues) : am labs pending. LFTs improved yesterday ASSESSMENT/PLAN: 1. Gallstone pancreatitis-yesterday her LFT's did improved. She may have passed a stone 2. Dilated common bile duct, intrahepatic and dilated pancreatic duct-? ampullary stenosis/tumor/stone 3. Gallstones. 4. Increased liver function tests probably related to biliary tract process. 5. Abdominal pain, nausea and vomiting - resolved at this time. PLAN: 1. Cont antibiotics 2. awaiting labs 3. D/W pt and family EUS vs ERCP (mihaela a diagram). If EUS done not show CBD stones then no ERCP is needed. If stones are present then ERCP can be done at same setting. all risks reviewed including pancreatitis, cholangitis, bleeding, perforation, infection. Will d/w with Dr. Celis feasibility of EUS or going directly to an ERCP It was a pleasure seeing Jessica Ortega. Thank you for this consult. Entered by: Prieto Angeles MD Oct 11, 2017 09:49
[2017-10-11 09:52] LABS: ANION GAP 6 MEQ/L (5-15); BLOOD UREA NITROGEN 4 MG/DL (7-18); CHLORIDE 107 MEQ/L (98-107); GLOMERULAR FILTRATION RATE 172 ML/MIN (>89); POTASSIUM 3.2 MEQ/L (3.5-5.1); SODIUM (NA) 140 MEQ/L (136-145)
[2017-10-11 09:53] LABS: ALT (GPT) 94 U/L (10-53); AST (GOT) 36 U/L (15-37)
[2017-10-11 09:56] LABS: ALKALINE PHOSPHATASE 299 U/L (45-117); TOTAL BILIRUBIN ADULT 0.8 MG/DL (0.2-1.0)
[2017-10-11] MEDS: D5-NS + KCL 20 MEQ INJ 1,000 ML IV SCH ×2 (12:11→18:07)
--- NOTE | 2017-10-11 12:52 | HHI.PR ---
Subjective Remarks no nausea or vomiting no abdominal pain Objective Vitals Vital Signs Date Time Temp Pulse Resp B/P (MAP) Pulse Ox O2 Delivery O2 Flow Rate FiO2 10/11/17 09:22 93 Nasal Cannula 2.00 10/11/17 08:00 97.6 92 16 124/58 (80) 94 10/11/17 04:22 85 10/11/17 04:00 98.3 97 20 106/53 (70) 94 10/11/17 00:07 85 10/11/17 00:00 97.9 92 20 128/63 (84) 95 10/10/17 20:00 97.3 88 20 120/58 (78) 94 10/10/17 19:59 81 10/10/17 16:00 97.0 75 18 137/59 (85) 97 I/O 10/10/17 10/10/17 10/10/17 10/11/17 10/11/17 10/11/17 07:00 15:00 23:00 07:00 15:00 23:00 Intake Total 732 ml 1050 ml 200 ml Balance 732 ml 1050 ml 200 ml IV Total 732 ml 1050 ml 200 ml # Voids 3 3 # Bowel Movements 1 Result Diagram: 10/10/17 1230 10/11/17 0903 Imaging Last Impressions Abdomen/Pelvis CT 10/08/172158 Signed Impressions: Service Date/Time: Sunday, October 08, 2017 22:53 - CONCLUSION: 1. Markedly distended, stone-filled gallbladder. The wall of the gallbladder is not thickened. No pericholecystic fluid is noted. 2. Extrahepatic and central intrahepatic biliary ductal dilatation is noted. The distal common bile duct measures 11 mm in caliber. There is diffuse dilatation of the main pancreatic duct. Correlation with alkaline phosphatase and bilirubin levels is suggested to confirm distal common bile duct obstruction. No definite pancreatic mass is noted. 3. Multiple calcified nonobstructing bilateral renal calculi which are too numerous to count. 4. Tiny sub-centimeter low-density lesions within the kidneys which may represent small cysts. 5. Uncomplicated colonic diverticulosis is noted. No acute diverticulitis is noted. 6. Degenerative changes and scoliosis of the thoracolumbar spine are noted. 7. Right basilar atelectasis is noted. Rojas Valdez MD Objective Remarks awake and alert, no acute distress anicteric lungs - no rales or wheezes regular rhythm abdomen soft, nontender, no guarding extremities no edema A/P Problem List: (1) Abdominal pain ICD Code: R10.9 - Unspecified abdominal pain Status: Acute (2) Gallstone pancreatitis ICD Code: K85.10 - Biliary acute pancreatitis without necrosis or infection Status: Acute Assessment and Plan 72-year-old female who presented to hospital because of one month history of intermittent colicky abdominal pain Acute gallstone pancreatitis- lipase trending down, pain improved -CT scan shows markedly distended, stone filled gallbladder. Gallbladder wall was not thickened, no pericholecystic fluid. Extrahepatic and central intrahepatic biliary ductal dilatation. Distal common bile measures 11 mm in caliber there is diffuse dilatation of the main hepatic duct - may have ice chips -Continue IV fluids -Continue pain control - GI ff- plan for ERCP/EUS today - ff labs - on IV flagyl and ciprofloxacin Hypokalemia- give 10 meqKCL IV x 1 - change IVF to NS + 20 meqKCL recheck labs in am Hypoglycemia- on labs - asymptomatic - ff blood sugar- improved Oral thrush -Mycelex 5 times daily Chronic obstructive pulmonary disease/emphysema- S/P upper lobe lobectomy- at one point was 02 dependent- now per patient not as often -Oxygen was removed and patient became hypoxic. We'll continue O2 supplementation maintain O2 sats greater than 92% -Ipratropium bromide every 6 hours as needed DVT prevention -Sequential compression devices Problem Qualifiers (1) Abdominal pain: Qualified Codes: R10.11 - Right upper quadrant pain Richard Chang MD Oct 11, 2017 12:52
[2017-10-11] MEDS ORDERED: POTASSIUM CHLOR 10 MEQ PREMIX 100 ML IV ONE (13:00)
[2017-10-11] MEDS ORDERED: SUGAMMADEX SODIUM 200 MG/2 ML VIAL IV PUSH ONE ×2 (17:10)
--- NOTE | 2017-10-11 17:31 | GIPROC ---
[facility] [address] [facility]. [facility], [address] UPPER ENDOSCOPIC ULTRASOUND PROCEDURE REPORT EXAM DATE: 10/11/2017 PATIENT NAME: Jessica Ortega MR#: [id number] BIRTHDATE: 1945 ATTENDING: Danielle Celis MD ORDER: [id number] BUSINESS INTELLIGENCE ADMINISTRATOR: Adrienne Arvizu and Jennifer Weber STATUS: inpatient INDICATIONS: The patient is a 72 yr old female here for a lower endoscopic ultrasound due to abdominal pain in upper right quadrant and elevated lfts, diated bile ducts, gallbladder stones PROCEDURE PERFORMED: Upper Endoscopic Ultrasound without FNA MEDICATIONS: None and Per Anesthesia. CONSENT: The patient understands the risks and benefits of the procedure and understands that these risks include, but are not limited to: sedation, allergic reaction, infection, perforation and/or bleeding. Alternative means of evaluation and treatment include, among others: physical exam, x-rays, and/or surgical intervention. The patient elects to proceed with this endoscopic procedure. medical equipment was checked for proper function. Hand hygiene and appropriate measures for infection prevention was taken. After the risks, benefits and alternatives of the procedure were thoroughly explained, Informed consent was verified, confirmed and timeout was successfully executed by the treatment team. The patient was then placed in the left, lateral, decubitus position and IV sedation was administered. Throughout the procedure, the patients blood pressure, pulse and oxygen saturations were monitored continuously. Under direct visualization, the Pentax [id number] was introduced through the mouth and advanced to the second portion of the duodenum. Water was used as necessary to provide an acoustic interface. The pulse, BP, and O2 saturation were monitored and documented by the physician and nursing staff throughout the procedure. Upon completion of the imaging, water was removed and the patient was then discharged to recovery in stable condition with the appropriate post procedure care. LIVER: There were no endosonographic abnormalities in the visualized portion of the liver. BILIARY SYSTEM: The CBD was dilated 8 mm. No clear evidence of stones in the bile duct. GALLBLADDER: Multiple (innumerable) gallstones were found in the body of the gallbladder. The stones casted an acoustic shadow. PANCREAS: The pancreas parenchyma appeared heterogeneous without masses, cysts or changes of chronic pancreatitis. The pancreatic duct was non-dilated. LYMPH NODE: No abnormal lymph nodes were seen. AMPULLA: The ampulla had no endosonographic abnormalities. ADVERSE EVENTS: There were no complications IMPRESSIONS: 1. The CBD was dilated 8 mm Suspect Passed bile duct stone. 2. Multiple gallstones were found in the body of the gallbladder 3. The pancreas parenchyma appeared heterogeneous without masses, cysts or changes of chronic pancreatitis. The pancreatic duct was non-dilated 4. No abnormal lymph nodes were seen RECOMMENDATIONS: 1. Return to floor 2. Start Clear liquid diet and advance as tolerated 3. Surgical eval for cholecystectomy. 4. If symptoms return then recommend MRCP and possible ERCP Danielle Celis MD eSigned: Danielle Celis MD 10/11/2017 5:31 PM cc: PATIENT NAME: Jessica Ortega MR#: [id number]
[2017-10-11] MEDS ORDERED: DO NOT ADM ANY ANTICOAGULANT DRUGS PRN (17:44)
[2017-10-12] VITALS: BP 112/60; PULSE 84; RESP 20; TEMP 97.9; O2SAT 96
[2017-10-12] MEDS: metroNIDAZOLE 500 MG INJ 100 ML IV SCH ×2 (02:29→08:51)
[2017-10-12 04:00] VITALS: BP 128/57; PULSE 76; RESP 20; TEMP 97.7; O2SAT 95
[2017-10-12] MEDS: RESP: IPRATROPIUM 0.5 MG/2.5 ML NEB NEB SCH ×2 (04:56→10:26)
[2017-10-12] MEDS: D5-NS + KCL 20 MEQ INJ 1,000 ML IV SCH (05:01)
[2017-10-12] MEDS: CIPROFLOXACIN 400 MG PREMIX 200 ML IV SCH (05:01)
[2017-10-12] MEDS: CLOTRIMAZOLE 10 MG TROCHE BUCCAL SCH ×3 (05:15→13:09)
[2017-10-12 06:00] VITALS: BP 128/57; PULSE 76; RESP 20; TEMP 97.7; O2SAT 95
[2017-10-12 08:00] VITALS: BP 116/71; PULSE 81; PULSE 94; RESP 18; TEMP 98.4; O2SAT 94
[2017-10-12] MEDS: SODIUM CHLORIDE 0.9% FLUSH 10 ML FLUSH IV FLUSH SCH (08:52)
--- NOTE | 2017-10-12 10:32 | HHI.GIFU ---
GI Follow-up Note Consult Follow-up Subjective: Patient feeling well . no N/V/abd pain Objective: PHYSICAL EXAMINATION: Vitals signs stable No fever HEENT: Pupils round and reactive to light; normocephalic; atraumatic; no jaundice. Throat is clear. NECK: Neck is supple, no JVD, no lymphadenopathy. CHEST: Chest is clear to auscultation and percussion. CARDIAC: Regular rate and rhythm with no murmur gallop or rubs. ABDOMEN: Soft, nondistended, nontender; no hepatosplenomegaly; bowel sounds are present in all four quadrants. EXTREMITIES: No edema. FIRE ENGINE PUMP OPERATOR: alert and oriented times three. Available Data (labs, X- Rays, Procedues) : EUS results D/W pt/family ASSESSMENT/PLAN: 1. Gallstone pancreatitis-EUS shows a dilated CBD but no CBD stone-she passed it 2. Dilated common bile duct, but normal PD. no pancreatic cancer seen 3. Gallstones. 4. Increased liver function tests probably related to biliary tract process. 5. Abdominal pain, nausea and vomiting - resolved at this time. PLAN: 1. D/W pt/family// Charlene that timing of GB removal needs to be addressed prior to D/C or this problem may occur again It was a pleasure seeing Jessica Ortega. Thank you for this consult. Entered by: Prieto Angeles MD Oct 12, 2017 10:31
--- NOTE | 2017-10-12 11:42 | HHI.PR ---
Subjective Subjective Notes EUS showed no CBD stones. She feels much better and denies abdominal pain. She wants to go home. Objective Vitals/I&O Vital Signs Date Time Temp Pulse Resp B/P (MAP) Pulse Ox O2 Delivery O2 Flow Rate FiO2 10/12/17 10:26 2.00 10/12/17 08:00 81 10/12/17 06:00 97.7 20 128/57 (80) 95 10/11/17 21:09 Nasal Cannula 10/09/17 10:13 21 Radiology Last Impressions Abdomen/Pelvis CT 10/08/172158 Signed Impressions: Service Date/Time: Sunday, October 08, 2017 22:53 - CONCLUSION: 1. Markedly distended, stone-filled gallbladder. The wall of the gallbladder is not thickened. No pericholecystic fluid is noted. 2. Extrahepatic and central intrahepatic biliary ductal dilatation is noted. The distal common bile duct measures 11 mm in caliber. There is diffuse dilatation of the main pancreatic duct. Correlation with alkaline phosphatase and bilirubin levels is suggested to confirm distal common bile duct obstruction. No definite pancreatic mass is noted. 3. Multiple calcified nonobstructing bilateral renal calculi which are too numerous to count. 4. Tiny sub-centimeter low-density lesions within the kidneys which may represent small cysts. 5. Uncomplicated colonic diverticulosis is noted. No acute diverticulitis is noted. 6. Degenerative changes and scoliosis of the thoracolumbar spine are noted. 7. Right basilar atelectasis is noted. Rojas Valdez MD Narrative Exam NAD, thin, frail Abd: soft, nontender A/P Assessment and Plan 72 yo F gallstone pancreatitis,resolved. EUS shows no CBD stones. + cholelithiasis. I offered lap david on Saturday afternoon, but she does not want to stay until that time. I am ok with d/c and f/u in 1-2 weeks with me for outpatient surgical planning. I requested that she see her PCP CORNELIO for medical clearance especially in regards to her pulmonary status. She does not currently have a planning aide. D/w patient and her daughter and they understand. Recomended low fat diet. Madhu,Adair SUMMERS Oct 12, 2017 11:42
[2017-10-12 12:00] VITALS: BP 99/55; PULSE 82; RESP 18; TEMP 97.5; O2SAT 93
--- NOTE | 2017-10-12 12:39 | HHI.PR ---
Subjective Remarks doing bery well, no abdominalpain tolerating po diet Objective Vitals Vital Signs Date Time Temp Pulse Resp B/P (MAP) Pulse Ox O2 Delivery O2 Flow Rate FiO2 10/12/17 10:26 2.00 10/12/17 08:00 81 10/12/17 06:00 97.7 76 20 128/57 (80) 95 10/12/17 04:00 97.7 76 20 128/57 (80) 95 10/12/17 00:00 97.9 84 20 112/60 (77) 96 10/11/17 21:09 95 Nasal Cannula 2.00 10/11/17 20:00 97.7 73 20 137/67 (90) 96 10/11/17 18:13 97.6 77 20 150/71 (97) 95 Nasal Cannula 3 10/11/17 18:00 77 20 150/71 (97) 95 Nasal Cannula 3 10/11/17 17:40 97.6 85 20 158/74 (102) 90 Nasal Cannula 3 10/11/17 16:27 81 10/11/17 16:00 97.6 91 16 141/61 (87) 95 I/O 10/11/17 10/11/17 10/11/17 10/12/17 10/12/17 10/12/17 07:00 15:00 23:00 07:00 15:00 23:00 Intake Total 600 ml 1300 ml Balance 600 ml 1300 ml Intake Oral 0 ml IV Total 400 ml 1300 ml Other 200 ml # Voids 3 4 Result Diagram: 10/10/17 1230 10/11/17 0903 Imaging Last Impressions Abdomen/Pelvis CT 10/08/17 2607 Signed Impressions: Service Date/Time: Sunday, October 08, 2017 22:53 - CONCLUSION: 1. Markedly distended, stone-filled gallbladder. The wall of the gallbladder is not thickened. No pericholecystic fluid is noted. 2. Extrahepatic and central intrahepatic biliary ductal dilatation is noted. The distal common bile duct measures 11 mm in caliber. There is diffuse dilatation of the main pancreatic duct. Correlation with alkaline phosphatase and bilirubin levels is suggested to confirm distal common bile duct obstruction. No definite pancreatic mass is noted. 3. Multiple calcified nonobstructing bilateral renal calculi which are too numerous to count. 4. Tiny sub-centimeter low-density lesions within the kidneys which may represent small cysts. 5. Uncomplicated colonic diverticulosis is noted. No acute diverticulitis is noted. 6. Degenerative changes and scoliosis of the thoracolumbar spine are noted. 7. Right basilar atelectasis is noted. Rojas Valdez MD Objective Remarks awake and alert, no acute distress anicteric lungs - no rales or wheezes regular rhythm abdomen soft, nontender, no guarding extremities no edema A/P Problem List: (1) Abdominal pain ICD Code: R10.9 - Unspecified abdominal pain Status: Acute (2) Gallstone pancreatitis ICD Code: K85.10 - Biliary acute pancreatitis without necrosis or infection Status: Acute Assessment and Plan 72-year-old female who presented to hospital because of one month history of intermittent colicky abdominal pain Acute gallstone pancreatitis- lipase trending down, pain improved -CT scan shows markedly distended, stone filled gallbladder. Gallbladder wall was not thickened, no pericholecystic fluid. Extrahepatic and central intrahepatic biliary ductal dilatation. Distal common bile measures 11 mm in caliber there is diffuse dilatation of the main hepatic duct tolerating po - ff labs - on IV flagyl and ciprofloxacin- change to po Hypokalemia- replaced. recheck as OP Hypoglycemia- on labs - asymptomatic - ff blood sugar- improved Oral thrush -Mycelex 5 times daily Chronic obstructive pulmonary disease/emphysema- S/P upper lobe lobectomy- at one point was 02 dependent- now per patient not as often -Oxygen was removed and patient became hypoxic. We'll continue O2 supplementation maintain O2 sats greater than 92% -Ipratropium bromide every 6 hours as needed d/w patient to set up with a Pulmonary MD- for pulmonary clearance for scheduled gallbladder surgery continue her nebulization at home Problem Qualifiers (1) Abdominal pain: Qualified Codes: R10.11 - Right upper quadrant pain Richard Chang MD Oct 12, 2017 12:39
[2017-10-12] MEDS ORDERED: LEVA500T33 PO (12:43)
[2017-10-12] MEDS ORDERED: METR1TAB76 PO (12:44)
[2017-10-12] MEDS ORDERED: CLOT10TR BUCCAL (12:53)
[2017-10-12] MEDS: POTASSIUM CHLORIDE 20 MEQ CONTROLLED RELEASE TAB PO ONE ×2 (13:00→13:08)
== END 2017-10-12 13:19 | disposition home or self-care (01) | DRG 439 ==
LOC: PHED 21:31 → PHEDA 10-09 00:33 → PH3A 10-09 01:50 → N04B 10-09 13:49
PROVIDERS: ADMIT Internal Medicine; ATTEND Internal Medicine
PROC: 0DJ08ZZ Inspection of Upper Intestinal Tract, Via Natural or Artificial Opening Endoscopic (ICD-10-PCS; principal; 2017-10-11 16:50)
DX: K85.10 Biliary acute pancreatitis without necrosis or infection (principal); K80.51 Calculus of bile duct without cholangitis or cholecystitis with obstruction; J96.11 Chronic respiratory failure with hypoxia; N20.0 Calculus of kidney; B37.0 Candidal stomatitis; Z99.81 Dependence on supplemental oxygen; J43.9 Emphysema, unspecified; N28.1 Cyst of kidney, acquired; F40.240 Claustrophobia; K02.9 Dental caries, unspecified; K57.90 Diverticulosis of intestine, part unspecified, without perforation or abscess without bleeding; E87.6 Hypokalemia; Z87.891 Personal history of nicotine dependence; Z90.11 Acquired absence of right breast and nipple; Z85.3 Personal history of malignant neoplasm of breast
CPT/HCPCS: 74177; 80053; 80076; 81001; 82248; 82948; 83690; 84484; 85025; 85610; 85730; 93005; 94150; 94640; 94664; 96361; 96374; 96375; J0744; J2270; J2405; J3480; J7030; J7644; Q9967